=== PATIENT | female | born 1960 | race Caucasian/White ===

== ENCOUNTER → 2021-06-06 | Outpatient (CLI) | payer SELFPAY ==
--- NOTE | 2021-06-06 18:10 | Diagnostic Imaging Report ---
MRI LT UPPER EXT JOINT W/O Technique: Multiplanar, multisequence MR imaging of the left shoulder was performed without contrast. Comparison: None available. Indication: Left shoulder pain with recent fall. Findings: Rotator cuff: Intermediate grade partial-thickness articular sided tear in the anterior supraspinatus has associated delaminated tearing extending along the myotendinous junction. The tear involves approximately 50% of the thickness of insertional fibers and the posterior supraspinatus. Infraspinatus tendinopathy low-grade partial-thickness interstitial tearing. Teres minor is intact. Subscapularis intact. No rotator cuff muscle atrophy. Glenoid labrum: Linear signal in the superior labrum could represent nondisplaced intrasubstance tear. No paralabral cyst. Long head of biceps: Long head of biceps is normally positioned within the bicipital groove. The intracapsular segment is intact. Bones and cartilage: Humeral head is normal in morphology without fracture or focal osseous lesion. No glenohumeral chondromalacia. The acromioclavicular joint is normal in alignment without significant degenerative change. Soft tissues: No glenohumeral joint effusion. No MRI findings to suggest adhesive capsulitis. No fluid or inflammatory like signal within the subacromial/subdeltoid space to indicate bursitis. IMPRESSION: 1. Intermediate grade partial-thickness articular sided tear in the supraspinatus has associated delaminated tearing extending along the myotendinous junction. 2. Infraspinatus tendinopathy with low-grade partial-thickness interstitial tearing at its insertion. 3. Long head of biceps is intact. 4. Possible nondisplaced superior labral tear. No paralabral cyst. Dictated by: Dictated on workstation # [id number]
== END ==
LOC: RAD 13:15
PROVIDERS: ATTEND Student in an Organized Health Care Education/Training Program
DX: M75.112 Incomplete rotator cuff tear or rupture of left shoulder, not specified as traumatic (principal); W19.XXXA Unspecified fall, initial encounter
CPT/HCPCS: 73221

== ENCOUNTER → 2021-08-07 | Outpatient (CLI) | payer SELFPAY ==
--- NOTE | 2021-08-07 12:40 | Diagnostic Imaging Report ---
EXAMINATION: Right shoulder MRI without contrast, 08/07/2021. TECHNIQUE: Multiplanar, multisequence [id number] MRI of the right upper extremity was accomplished. INDICATION: Acute right shoulder pain. FINDINGS: The infraspinatus tendon appears intact. The supraspinatus tendon appears thinned with an articular sided partial-thickness tear noted. No full-thickness tear is appreciated. There is a partial-thickness intrasubstance tear of the subscapularis tendon with medial subluxation of the long head of the biceps tendon. The biceps tendon contains a longitudinal split tear. Surrounding fluid consistent with tenosynovitis. The biceps tendon anchor is intact. The labrum is poorly characterized without contrast. There is narrowing and spurring at the acromioclavicular joint. Subchondral cysts seen throughout the humeral head consistent with degenerative disease. Muscle volume is preserved. Visualized axilla is unremarkable. IMPRESSION: 1. Partial-thickness articular sided tear of the supraspinatus tendon with the infraspinatus tendon intact. 2. Partial-thickness intrasubstance tear of the subscapularis tendon with secondary medial subluxation of the long head of the biceps tendon with a longitudinal split tear of the biceps tendon also noted and surrounding changes of tenosynovitis. Dictated by: Dictated on workstation # [id number]
== END ==
LOC: RAD 08:00
PROVIDERS: ATTEND Student in an Organized Health Care Education/Training Program
DX: S46.811A Strain of other muscles, fascia and tendons at shoulder and upper arm level, right arm, initial encounter (principal); X58.XXXA Exposure to other specified factors, initial encounter
CPT/HCPCS: 73221